=== PATIENT | male | born 1965 | race Two or more races ===

== ENCOUNTER 2024-12-01 11:04 | Inpatient (IN) | payer OTHER ==
[~2024-12-01] VITALS: Ht 172.7 cm; Wt 104.8 kg
[2024-12-01 11:37] LABS: BASOPHILS # (AUTO) 0.2 K/uL (0.0-0.2); BASOPHILS % (AUTO) 2.3 % (0.0-2.0); EOSINOPHILS # (AUTO) 0.6 K/uL (0.0-0.7); EOSINOPHILS % (AUTO) 6.4 % (0.0-6.0); HEMATOCRIT 35 % (39-51); HEMOGLOBIN 11.1 g/dL (13.5-17.5); LYMPHOCYTES # (AUTO) 1.9 K/uL (0.8-4.8); LYMPHOCYTES % (AUTO) 19.2 % (20.0-44.0); MEAN CORPUSCULAR HEMOGLOBIN 23 PG (26.0-33.0); MEAN CORPUSCULAR HGB CONC 32 g/dl (31.0-36.0); MEAN CORPUSCULAR VOLUME 72 fL (80-96); MONOCYTES # (AUTO) 0.8 K/uL (0.1-1.30); MONOCYTES % (AUTO) 8.6 % (2.0-12.0); NEUTROPHILS # (AUTO) 6.2 K/uL (1.8-8.9); NEUTROPHILS % (AUTO) 63.5 % (43.0-81.0); PLATELET COUNT (AUTO) 281 K/uL (150-450); RED BLOOD CELL COUNT(AUTO) 4.88 MIL/uL (4.5-6.0); RED CELL DISTRIBUTION WIDTH 16.4 % (11.5-15.0); WHITE BLOOD COUNT (AUTO) 9.7 K/uL (4.3-11.0)
[2024-12-01 11:44] LABS: CALCIUM, SERUM 8.5 mg/dL (8.5-10.1); CARBON DIOXIDE 24 mmol/L (21-32); CHLORIDE 106 mmol/L (98-107); CREATININE 2.2 mg/dL (0.6-1.3); GLUCOSE 138 mg/dL (74-106); POTASSIUM 4.7 mmol/L (3.5-5.1); SODIUM SERUM 137 mmol/L (136-145); UREA NITROGEN, BLOOD 28 mg/dL (7-18)
[2024-12-01] MEDS ORDERED: TELM20TA8 PO (12:24)
[2024-12-01] MEDS ORDERED: METF-440 PO (12:24)
[2024-12-01] MEDS ORDERED: DEXTROSE 50%-WATER 50 ML DISP.SYRIN IV PRN (14:30)
[2024-12-01] MEDS ORDERED: IV 1/2NS 1000 ML 1,000 ML IV PRN (14:30)
[2024-12-01] MEDS ORDERED: ACETAMINOPHEN 325 MG TABLET PO PRN (14:30)
[2024-12-01] MEDS ORDERED: Z GUARD REMEDY 4 OZ OINT TP PRN (14:30)
[2024-12-01] MEDS ORDERED: ONDANSETRON HCL/PF 4 MG/2 ML VIAL IVP PRN (14:30)
[2024-12-01 17:03] LABS: THYROID STIMULATING HORMONE 2.04 uIU/mL (0.358-3.74)
[2024-12-01] MEDS: BLOOD SUGAR DIAGNOSTIC 1 EACH STRIP IN SCH (17:04)
[2024-12-01 17:46] VITALS: BP_SYST 150; BP_SYST 160; BP_DIAS 100; O2SAT 98
[2024-12-01 20:00] VITALS: BP 157/88; TEMP 97.7; O2SAT 99
[2024-12-01] MEDS: INSULIN REGULAR, HUMAN 100 UNIT/ML 3 ML VIAL SQ PRN (22:03)
[2024-12-02] VITALS: BP 155/86; TEMP 98.1; O2SAT 99
[2024-12-02 04:00] VITALS: BP 148/86; TEMP 97.9; O2SAT 98
[2024-12-02 07:04] LABS: CALCIUM, SERUM 8.1 mg/dL (8.5-10.1); CREATININE 1.9 mg/dL (0.6-1.3); MAGNESIUM 2.3 mg/dL (1.8-2.4); PHOSPHORUS 3.4 mg/dL (2.5-4.9); POTASSIUM 4.5 mmol/L (3.5-5.1)
[2024-12-02 07:11] LABS: BASOPHILS % (AUTO) 0.6 % (0.0-2.0); EOSINOPHILS # (AUTO) 0.6 K/uL (0.0-0.7); EOSINOPHILS % (AUTO) 7.8 % (0.0-6.0); HEMATOCRIT 32 % (39-51); HEMOGLOBIN 9.9 g/dL (13.5-17.5); LYMPHOCYTES # (AUTO) 1.3 K/uL (0.8-4.8); LYMPHOCYTES % (AUTO) 18.2 % (20.0-44.0); MEAN CORPUSCULAR HEMOGLOBIN 23 PG (26.0-33.0); MEAN CORPUSCULAR HGB CONC 31 g/dl (31.0-36.0); MEAN CORPUSCULAR VOLUME 73 fL (80-96); MONOCYTES # (AUTO) 0.7 K/uL (0.1-1.30); NEUTROPHILS # (AUTO) 4.6 K/uL (1.8-8.9); NEUTROPHILS % (AUTO) 63.4 % (43.0-81.0); PLATELET COUNT (AUTO) 222 K/uL (150-450); RED BLOOD CELL COUNT(AUTO) 4.34 MIL/uL (4.5-6.0); WHITE BLOOD COUNT (AUTO) 7.2 K/uL (4.3-11.0)
[2024-12-02 08:00] VITALS: BP 160/103; TEMP 98.4; O2SAT 100
[2024-12-02] MEDS: AMLODIPINE BESYLATE 5 MG TABLET PO SCH (09:56)
[2024-12-02 12:00] VITALS: BP 170/100; TEMP 98.8; O2SAT 98
[2024-12-02] MEDS: FUROSEMIDE 20 MG/2 ML VIAL IV SCH (13:44)
[2024-12-02 15:18] LABS: CREATININE, URINE 83.2 MG/DL (30.0-125.0); URINE TOTAL PROTEIN 73.4 mg/dL (0-11.9)
[2024-12-02 15:47] LABS: APPEARANCE,URINE CLEAR (CLEAR); BILIRUBIN,URINE NEGATIVE (NEGATIVE); BLOOD, URINE 1+ Ery/uL (NEGATIVE); COLOR,URINE YELLOW (YELLOW); KETONES,URINE NEGATIVE (NEGATIVE); LEUKOCYTE ESTERASE ,URINE NEGATIVE (NEGATIVE); NITRITE, URINE NEGATIVE (NEGATIVE); PROTEIN,URINE 2+ mg/dl (NEGATIVE); UGLUCOSE NEGATIVE (NEGATIVE); UROBILINOGEN,URINE 0.2 EU/dL (0.2)
[2024-12-02 16:00] VITALS: BP 161/99; TEMP 98.2; O2SAT 98
[2024-12-02 16:02] LABS: ADD URINE CULTURE NO; BACTERIA,URINE Few /HPF (None Seen); SQUAMOUS EPITHELIAL CELL,UR Rare /HPF (None Seen); WBC,URINE 0-2 /HPF (0-3)
[2024-12-02 17:00] LABS: EOSINOPHIL,URINE None Seen
[2024-12-02 20:00] VITALS: BP 159/89; TEMP 97.9; O2SAT 99
[2024-12-03] VITALS: BP 142/86; TEMP 98.2; O2SAT 98
[2024-12-03 04:00] VITALS: BP_SYST 142; BP_SYST 150; BP_SYST 151; BP_DIAS 75; BP_DIAS 85; BP_DIAS 87; TEMP 97.5; O2SAT 98
[2024-12-03 06:32] LABS: BASOPHILS # (AUTO) 0.1 K/uL (0.0-0.2); BASOPHILS % (AUTO) 0.9 % (0.0-2.0); EOSINOPHILS # (AUTO) 0.6 K/uL (0.0-0.7); EOSINOPHILS % (AUTO) 7.9 % (0.0-6.0); HEMATOCRIT 34 % (39-51); HEMOGLOBIN 10.8 g/dL (13.5-17.5); LYMPHOCYTES # (AUTO) 1.5 K/uL (0.8-4.8); LYMPHOCYTES % (AUTO) 21.3 % (20.0-44.0); MEAN CORPUSCULAR HEMOGLOBIN 23 PG (26.0-33.0); MEAN CORPUSCULAR HGB CONC 32 g/dl (31.0-36.0); MEAN CORPUSCULAR VOLUME 72 fL (80-96); MONOCYTES # (AUTO) 0.8 K/uL (0.1-1.30); MONOCYTES % (AUTO) 11.4 % (2.0-12.0); NEUTROPHILS # (AUTO) 4.1 K/uL (1.8-8.9); NEUTROPHILS % (AUTO) 58.5 % (43.0-81.0); PLATELET COUNT (AUTO) 262 K/uL (150-450); RED BLOOD CELL COUNT(AUTO) 4.77 MIL/uL (4.5-6.0)
[2024-12-03 06:46] LABS: ALBUMIN 2.9 g/dL (3.4-5.0); BILIRUBIN,TOTAL 0.6 mg/dL (0.2-1.0); CALCIUM, SERUM 8.7 mg/dL (8.5-10.1); CREATININE 2.1 mg/dL (0.6-1.3); PHOSPHORUS 3.2 mg/dL (2.5-4.9); TOTAL PROTEIN, SERUM 7.4 g/dL (6.4-8.2)
[2024-12-03 07:00] VITALS: BP 152/90; TEMP 97.9; O2SAT 96
[2024-12-03 11:30] VITALS: BP 146/72; TEMP 98.1; O2SAT 99
[2024-12-03 16:00] VITALS: BP 144/78; TEMP 98.1; O2SAT 98
[2024-12-03 20:00] VITALS: BP 137/86; TEMP 99; O2SAT 98
[2024-12-04] VITALS: BP 137/79; TEMP 98.8; O2SAT 97; O2SAT 98
[2024-12-04 04:08] VITALS: BP 129/65; TEMP 98.1; O2SAT 96
[2024-12-04 06:30] LABS: BASOPHILS # (AUTO) 0.1 K/uL (0.0-0.2); BASOPHILS % (AUTO) 1.3 % (0.0-2.0); EOSINOPHILS # (AUTO) 0.6 K/uL (0.0-0.7); EOSINOPHILS % (AUTO) 8.5 % (0.0-6.0); HEMATOCRIT 32 % (39-51); HEMOGLOBIN 10.2 g/dL (13.5-17.5); LYMPHOCYTES # (AUTO) 1.7 K/uL (0.8-4.8); LYMPHOCYTES % (AUTO) 23.5 % (20.0-44.0); MEAN CORPUSCULAR HEMOGLOBIN 23 PG (26.0-33.0); MEAN CORPUSCULAR HGB CONC 32 g/dl (31.0-36.0); MEAN CORPUSCULAR VOLUME 71 fL (80-96); MONOCYTES # (AUTO) 0.9 K/uL (0.1-1.30); NEUTROPHILS # (AUTO) 3.9 K/uL (1.8-8.9); NEUTROPHILS % (AUTO) 53.7 % (43.0-81.0); PLATELET COUNT (AUTO) 239 K/uL (150-450); RED BLOOD CELL COUNT(AUTO) 4.43 MIL/uL (4.5-6.0); RED CELL DISTRIBUTION WIDTH 16.2 % (11.5-15.0); WHITE BLOOD COUNT (AUTO) 7.2 K/uL (4.3-11.0)
[2024-12-04 06:58] LABS: CALCIUM, SERUM 8.5 mg/dL (8.5-10.1); CREATININE 2.2 mg/dL (0.6-1.3); PHOSPHORUS 3.4 mg/dL (2.5-4.9)
[2024-12-04 07:30] VITALS: BP 136/77; TEMP 98.6; O2SAT 97
[2024-12-04 08:12] LABS: PTH, INTACT 72 pg/mL (15-65)
[2024-12-04] MEDS ORDERED: METO25TA6 PO (10:01)
[2024-12-04] MEDS ORDERED: LOSA25TA27 PO (10:01)
[2024-12-04] MEDS ORDERED: INSU100V28 SQ (10:01)
[2024-12-04] MEDS ORDERED: DAPA10TA PO (10:01)
[2024-12-04] MEDS ORDERED: FURO-144 PO (10:06)
[2024-12-04 10:07] VITALS: BP 136/77
[2024-12-04 10:23] LABS: LYMPHOCYTES % (MANUAL) 24 % (16-48)
[2024-12-04 10:24] LABS: EOSINOPHILS % (MANUAL) 8 % (0-4); MONOCYTES % (MANUAL) 13 % (0-11.0); NEUTROPHILS % (MANUAL) 54 (42-76); PLATELET ESTIMATE ADEQUATE
[2024-12-04] MEDS ORDERED: METOPROLOL TARTRATE 25 MG TABLET PO SCH (12:30)
[2024-12-04] MEDS ORDERED: hydrALAZINE HCL 10 MG TABLET PO SCH (13:00)
[2024-12-06 07:07] LABS: *SPE A/G RATIO 0.7 (0.7-1.7); *SPE ALBUMIN 2.8 g/dL (2.9-4.4); *SPE ALPHA-1-GLOBULIN 0.2 g/dL (0.0-0.4); *SPE ALPHA-2-GLOBULIN 0.8 g/dL (0.4-1.0); *SPE BETA GLOBULIN 1.2 g/dL (0.7-1.3); *SPE GLOBULIN, TOTAL 3.8 g/dL (2.2-3.9); *SPE M-SPIKE Not Observed g/dL (Not Observed); *SPE PROTEIN TOTAL 6.6 g/dL (6.0-8.5); *SPEGAMMA GLOBULIN 1.6 g/dL (0.4-1.8)
== END 2024-12-04 15:47 | disposition home or self-care (01) | DRG 291 ==
LOC: ER 11:06 → TELE 12:39 → MED 12-04 12:11
PROVIDERS: ATTEND Nurse Practitioner Acute Care
DX: I13.0 Hypertensive heart and chronic kidney disease with heart failure and stage 1 through stage 4 chronic kidney disease, or unspecified chronic kidney disease (principal); I50.23 Acute on chronic systolic (congestive) heart failure; N17.0 Acute kidney failure with tubular necrosis; D68.69 Other thrombophilia; I42.9 Cardiomyopathy, unspecified; N18.9 Chronic kidney disease, unspecified; E11.22 Type 2 diabetes mellitus with diabetic chronic kidney disease; D64.9 Anemia, unspecified; E66.01 Morbid (severe) obesity due to excess calories; Z68.35 Body mass index [BMI] 35.0-35.9, adult; Z79.84 Long term (current) use of oral hypoglycemic drugs; Z79.899 Other long term (current) drug therapy; Z79.4 Long term (current) use of insulin; R60.9 Edema, unspecified
CPT/HCPCS: 36415; 71045-TC; 76770-TC; 80048-TC; 80053-TC; 80061-TC; 81001; 82550-TC; 82570-TC; 82962-TC; 83735-TC; 83970; 84100-TC; 84155; 84165; 84300-TC; 84443-TC; 84484-TC; 85025-TC; 93307-TC; A4223; G0378; J1815; J1938; J3490

== ENCOUNTER 2025-01-20 08:48 | Inpatient (IN) | payer OTHER ==
[~2025-01-20] VITALS: Ht 175.3 cm; Wt 97.1 kg
[2025-01-20] VITALS (11 sets, daily range): BP systolic 103–142; BP diastolic 74–90; TEMP 97.4–97.9; O2SAT 100
[~2025-01-20 08:48] MED LIST: DAPA10TA PO; FURO-144 PO; INSU100V28 SQ; LOSA25TA27 PO; METF-440 PO; METO25TA6 PO; TELM20TA8 PO
[2025-01-20] MEDS ORDERED: DOSING PER PHARMACY-AMIODARONE DRIP XX PRN ×2 (09:00→11:30)
[2025-01-20 09:14] LABS: PLATELET COUNT (AUTO) 398 K/uL (150-450); RED BLOOD CELL COUNT(AUTO) 3.99 MIL/uL (4.5-6.0); RED CELL DISTRIBUTION WIDTH 17.4 % (11.5-15.0); WHITE BLOOD COUNT (AUTO) 15.1 K/uL (4.3-11.0)
[2025-01-20 09:23] LABS: CALCIUM, SERUM 8.6 mg/dL (8.5-10.1); CREATININE 2.9 mg/dL (0.6-1.3); SODIUM SERUM 125 mmol/L (136-145); UREA NITROGEN, BLOOD 52 mg/dL (7-18)
[2025-01-20 09:27] LABS: PHOSPHORUS 4.1 mg/dL (2.5-4.9)
[2025-01-20 09:30] LABS: INR 1.17 (0.91-1.10)
[2025-01-20] MEDS: AMIODARONE 150 MG/3 ML VIAL IV ONE (09:36)
[2025-01-20] MEDS: AMIODARONE 450 MG in IV D5W 241 ML IV PRN ×2 (10:05→12:01)
[2025-01-20] MEDS: IV NS 0.9% 500 ML BAG IV ONE (10:29)
[2025-01-20] MEDS ORDERED: MAGNESIUM HYDROXIDE 30 ML UDC PO PRN (11:30)
[2025-01-20] MEDS ORDERED: ACETAMINOPHEN 325 MG TABLET PO PRN (11:30)
[2025-01-20] MEDS ORDERED: Z GUARD REMEDY 4 OZ OINT TP PRN (11:30)
[2025-01-20] MEDS: IV NS 0.9% 1,000 ML IV PRN (12:04)
[2025-01-20] MEDS: ONDANSETRON HCL/PF 4 MG/2 ML VIAL IVP PRN (16:27)
[2025-01-20] MEDS ORDERED: DEXTROSE 50%-WATER 50 ML DISP.SYRIN IV PRN (16:30)
[2025-01-20] MEDS: BLOOD SUGAR DIAGNOSTIC 1 EACH STRIP IN SCH (17:11)
[2025-01-20] MEDS: INSULIN REGULAR, HUMAN 100 UNIT/ML 3 ML VIAL SQ PRN (17:16)
[2025-01-20] MEDS ORDERED: BLOOD SUGAR DIAGNOSTIC 1 EACH STRIP IN SCH (18:00)
[2025-01-20] MEDS: MAG HYDROX/AL HYDROX/SIMETH 30 ML UDC PO PRN (19:31)
[2025-01-21] VITALS (23 sets, daily range): BP systolic 96–161; BP diastolic 59–86; TEMP 97.3–98.1; O2SAT 98–100
[2025-01-21 05:13] LABS: CALCIUM, SERUM 9.0 mg/dL (8.5-10.1); CREATININE 3.6 mg/dL (0.6-1.3); PHOSPHORUS 4.4 mg/dL (2.5-4.9); PLATELET COUNT (AUTO) 362 K/uL (150-450); RED BLOOD CELL COUNT(AUTO) 4.12 MIL/uL (4.5-6.0); RED CELL DISTRIBUTION WIDTH 17.7 % (11.5-15.0); SODIUM SERUM 123.0 mmol/L (136-145); UREA NITROGEN, BLOOD 62.0 mg/dL (7-18); WHITE BLOOD COUNT (AUTO) 19.5 K/uL (4.3-11.0)
[2025-01-21] MEDS: METOCLOPRAMIDE HCL 10 MG/2 ML VIAL IV SCH (05:33)
[2025-01-21] MEDS: SODIUM ZIRCONIUM CYCLOSILICATE 10 GM POWD.PACK PO SCH ×2 (08:42→13:45)
[2025-01-21] MEDS: PIPERACILLIN /TAZOBACTAM 2.25 G in IV D5W 50 ML IV SCH (08:42)
[2025-01-21] MEDS: METOPROLOL TARTRATE 25 MG TABLET PO SCH (08:42)
[2025-01-21 08:46] LABS: ABG BASE EXCESS -7.4 mmol/L (-2.0-3.0); ABG OXYGEN SATURATION 97.0 % (94.0-98.0); ABG PCO2 21.2 mmHg (35.0-48.0); ABG PH 7.462 (7.350-7.450); ABG PO2 101.0 mmHg (83.0-108.0); ABG TOTAL HEMOGLOBIN 10.2 G/dL (13.5-17.5); FRACTIONATED INSPIRED OXYGEN 21.0 %; SITE, ABG LEFT RADIAL
[2025-01-21] MEDS ORDERED: LOSARTAN POTASSIUM 25 MG TABLET PO SCH (09:00)
[2025-01-21] MEDS: INSULIN REGULAR, HUMAN 100 UNIT in IV NS 0.9% 99 ML IV PRN (09:31)
[2025-01-21 14:49] LABS: CALCIUM, SERUM 8.6 mg/dL (8.5-10.1); CREATININE 3.9 mg/dL (0.6-1.3); SODIUM SERUM 127.0 mmol/L (136-145); UREA NITROGEN, BLOOD 68.0 mg/dL (7-18)
[2025-01-21] MEDS ORDERED: FUROSEMIDE 20 MG/2 ML VIAL IV SCH (15:00)
[2025-01-21] MEDS: FUROSEMIDE 20 MG/2 ML VIAL IV ONE (15:25)
[2025-01-21 17:19] LABS: LACTIC ACID 3.4 mmol/L (0.4-2.0)
[2025-01-21] MEDS: FUROSEMIDE 20 MG/2 ML VIAL IV SCH (20:40)
[2025-01-21 20:49] LABS: LACTIC ACID REFLEX 3.2 mmol/L (0.4-1.9)
[2025-01-21] MEDS ORDERED: METOCLOPRAMIDE HCL 10 MG/2 ML VIAL IV SCH (23:30)
== END 2025-01-21 23:40 | disposition short-term general hospital (02) | DRG 308 ==
LOC: ER 08:51 → ICU 10:15
PROVIDERS: ADMIT Internal Medicine; ATTEND Internal Medicine
DX: I47.20 Ventricular tachycardia, unspecified (principal); I50.23 Acute on chronic systolic (congestive) heart failure; R57.0 Cardiogenic shock; I13.0 Hypertensive heart and chronic kidney disease with heart failure and stage 1 through stage 4 chronic kidney disease, or unspecified chronic kidney disease; N18.4 Chronic kidney disease, stage 4 (severe); E87.1 Hypo-osmolality and hyponatremia; N17.9 Acute kidney failure, unspecified; J90 Pleural effusion, not elsewhere classified; R18.8 Other ascites; I42.0 Dilated cardiomyopathy; E87.3 Alkalosis; I49.01 Ventricular fibrillation; D64.9 Anemia, unspecified; D72.829 Elevated white blood cell count, unspecified; E86.0 Dehydration; E87.5 Hyperkalemia; Z79.4 Long term (current) use of insulin; Z79.84 Long term (current) use of oral hypoglycemic drugs; E11.22 Type 2 diabetes mellitus with diabetic chronic kidney disease; E83.9 Disorder of mineral metabolism, unspecified; R91.8 Other nonspecific abnormal finding of lung field; R93.5 Abnormal findings on diagnostic imaging of other abdominal regions, including retroperitoneum; R16.0 Hepatomegaly, not elsewhere classified; K80.20 Calculus of gallbladder without cholecystitis without obstruction; E87.8 Other disorders of electrolyte and fluid balance, not elsewhere classified; R79.89 Other specified abnormal findings of blood chemistry
CPT/HCPCS: 36415; 71045-TC; 76770-TC; 80048-TC; 82247-TC; 82248-TC; 82962-TC; 83605-TC; 83735-TC; 84100-TC; 84484-TC; 85025-TC; 85730-TC; 87081-TC; 93307-TC; A4223; G0378; J0282; J1815; J1938; J2405; J2543; J2765; J7030; J7040; J7060